=== PATIENT | male | born 1990 | race Two or more races ===

== ENCOUNTER 2019-10-24 20:01 | Inpatient (IN) | payer MEDICAID, OTHER ==
[~2019-10-24] VITALS: Ht 180.3 cm; Wt 78.2 kg
[2019-10-24] MEDS ORDERED: SODIUM CHLORIDE 0.9% 2,000 ML IV ONE (20:30)
[2019-10-24 20:45] LABS: Basophils # (auto) 0.1 10 ^3/uL (0-0.2); Basophils % (auto) 0.4 % (0.0-2.0); Eosinophils # (auto) 0 10 ^3/uL (0-0.8); Eosinophils % (auto) 0.1 % (0.0-7.0); Hematocrit 39.2 % (41.0-53.0); Hemoglobin 13.5 g/dL (13.5-17.5); Lymphocytes # (auto) 1.8 10 ^3/uL (0.4-5.4); Lymphocytes % (auto) 10.5 % (10.0-50.0); Mean Corpuscular Hemoglobin 31.1 pg (28.0-32.0); Mean Corpuscular Hgb Conc. 34.3 g/dL (32.0-36.0); Mean Corpuscular Volume 90.5 fL (80.0-100.0); Monocytes # (auto) 1.4 10 ^3/uL (0-1.3); Monocytes % (auto) 7.9 % (0.0-12.0); Neutrophils # (auto) 14.2 10 ^3/uL (1.6-8.6); Neutrophils % (auto) 81.1 % (37.0-80.0); Platelet Count (auto) 274 10^3/uL (140-450); Red Blood Cells 4.33 10^6/uL (4.5-5.90); Red Cell Distribution Width 13.5 % (11.8-14.3); White Blood Cell 17.5 10^3/uL (4.4-10.8)
[2019-10-24 21:02] LABS: Calcium 8.6 mg/dL (8.5-10.1); Potassium 3.5 mmol/L (3.5-5.1)
[2019-10-24 21:07] LABS: BUN/Creatinine Ratio 12.6; Bilirubin, Total 2.7 mg/dL (0.2-1.0); Total Protein 7.4 g/dL (6.4-8.2)
[2019-10-24] MEDS ORDERED: SODIUM CHLORIDE 0.9% 1,000 ML IV ONE ×2 (21:15→22:45)
[2019-10-24 22:32] LABS: Lactic Acid w/Reflex 2.8 mmol/L (0.4-2.0)
[2019-10-24] MEDS ORDERED: METOPROLOL TARTRATE 1MG/1ML-5ML VIAL IV ONE (22:45)
[2019-10-24] MEDS ORDERED: VANCOMYCIN 1GM/250ML 250 ML IV ONE (22:45)
[2019-10-24] MEDS ORDERED: PIPERACILLIN-TAZOB 3.375GM 100 ML IV ONE (22:45)
[2019-10-24] MEDS ORDERED: ENOXAPARIN SOD 80 MG/0.8ML SYRINGE SC ONE (22:45)
[2019-10-24 22:48] LABS: INR 1.13 (0.9-1.15); Partial Thromboplastin Time 26.8 sec (23.64-32.05)
[2019-10-24 23:22] LABS: Urine Bacteria FEW /hpf (None Seen); Urine Blood Negative /uL (Negative); Urine Hyaline Cast MOD /lpf (0 - 2); Urine Mucus FEW (None Seen); Urine Specific Gravity 1.008 (1.001-1.035); Urine WBC 3 /hpf (0 - 3)
[2019-10-24 23:39] LABS: Alcohol, Urine < 3.0 mg/dL (0-10); Amphetamine Screen, Urine NEGATIVE (NEGATIVE); Barbiturate Scree,Urine NEGATIVE (NEGATIVE); Benzodiazephine Screen, Urine NEGATIVE (NEGATIVE); Cannabinoid Screen, Urine POSITIVE (NEGATIVE); Cocaine Screen, Urine POSITIVE (NEGATIVE); Opiate Scree,Urine NEGATIVE (NEGATIVE); Phencyclidine Screen, Urine NEGATIVE (NEGATIVE)
[2019-10-25] MEDS: SODIUM CHLORIDE 0.9% 1,000 ML IV SCH ×2 (00:27→13:47)
[2019-10-25] MEDS ORDERED: ZOLPIDEM TARTRATE 5 MG TAB PO PRN (00:30)
[2019-10-25] MEDS ORDERED: ACETAMINOPHEN 325 MG TAB PO PRN (00:30)
[2019-10-25] MEDS ORDERED: SODIUM CHLORIDE 0.9% 1,000 ML IV ONE (00:30)
[2019-10-25] MEDS ORDERED: NITROGLYCERIN 0.4 MG SL TAB SL PRN (00:30)
[2019-10-25] MEDS ORDERED: METOPROLOL TARTRATE 1MG/1ML-5ML VIAL IV PRN (00:30)
[2019-10-25] MEDS ORDERED: MORPHINE SULF INJ 2 MG/ML SYRINGE 1ML IV PRN (00:30)
[2019-10-25] MEDS ORDERED: ONDANSETRON HCL 4 MG/2 ML VIAL IV PRN (00:30)
[2019-10-25] MEDS ORDERED: LIDOCAINE W/ EPINEPHRINE 2% INJ 20ML VIAL ID ONE (00:45)
[2019-10-25] MEDS ORDERED: LIDOCAINE W/ EPINEPHRINE 1% 20ML VIAL SC ONE (01:00)
[2019-10-25] MEDS: CARVEDILOL 3.125 MG TAB PO SCH ×2 (10:00→21:46)
[2019-10-25] MEDS: LISINOPRIL 10 MG TAB PO SCH (10:00)
[2019-10-25] MEDS: CLOPIDOGREL BISULFATE 75 MG TAB PO SCH (10:08)
[2019-10-25] MEDS: DOCUSATE SOD 100 MG CAP PO SCH (10:09)
[2019-10-25] MEDS: cefTRIAXone 1GM/50ML D5W 50 ML IV SCH (10:10)
[2019-10-25] MEDS: ASPirin 81 mg TAB PO SCH (10:10)
[2019-10-25] MEDS: ENOXAPARIN SOD 80 MG/0.8ML SYRINGE SC SCH ×2 (10:11→21:47)
--- NOTE | 2019-10-25 17:00 | NUR ---
Patient arrived to unit alert and oriented x4. Patient verbalized his desire to go home. I let him know he would for sure be here overnight. Patient verbalized understanding. Patient oriented to unit, call light, phone, and room. Patient with no s/s of distress at this time.
[2019-10-25] MEDS ORDERED: ATORVASTATIN 20 MG TAB PO SCH ×2 (18:00→22:00)
--- NOTE | 2019-10-25 19:30 | NUR ---
opening note pt resting in semi fowlers position. pt denies pain or discomfort at this. respirations are even and nonlabored on room air. POC discussed. bed in low locked position, call light within reach.
--- NOTE | 2019-10-25 19:45 | NUR ---
critical lab current troponin level of 0.843, TRENDING DOWN from 1.360
[2019-10-25 22:00] VITALS: BP 128/77
--- NOTE | 2019-10-26 01:33 | NUR ---
critical lab Troponin 0.677, TRENDING DOWN from 0.843
[2019-10-26] MEDS: SODIUM CHLORIDE 0.9% 1,000 ML IV SCH (03:07)
[2019-10-26 05:00] VITALS: BP 121/78
[2019-10-26 06:54] LABS: Basophils # (auto) 0 10 ^3/uL (0-0.2); Basophils % (auto) 0.4 % (0.0-2.0); Eosinophils # (auto) 0 10 ^3/uL (0-0.8); Eosinophils % (auto) 0.7 % (0.0-7.0); Hematocrit 28.3 % (41.0-53.0); Hemoglobin 9.6 g/dL (13.5-17.5); Lymphocytes # (auto) 1.5 10 ^3/uL (0.4-5.4); Lymphocytes % (auto) 24.3 % (10.0-50.0); Mean Corpuscular Hemoglobin 31.4 pg (28.0-32.0); Mean Corpuscular Hgb Conc. 34.1 g/dL (32.0-36.0); Mean Corpuscular Volume 92.1 fL (80.0-100.0); Monocytes # (auto) 0.6 10 ^3/uL (0-1.3); Monocytes % (auto) 10.4 % (0.0-12.0); Neutrophils # (auto) 3.9 10 ^3/uL (1.6-8.6); Neutrophils % (auto) 64.2 % (37.0-80.0); Platelet Count (auto) 167 10^3/uL (140-450); Red Blood Cells 3.07 10^6/uL (4.5-5.90); Red Cell Distribution Width 13.3 % (11.8-14.3); White Blood Cell 6.1 10^3/uL (4.4-10.8)
[2019-10-26 07:04] LABS: Calcium 7.9 mg/dL (8.5-10.1); Potassium 3.9 mmol/L (3.5-5.1)
[2019-10-26 07:09] LABS: BUN/Creatinine Ratio 16.5
--- NOTE | 2019-10-26 07:16 | NUR ---
closing note pt resting in semi fowlers with eyes closed. no s/s of pain or discomfort. respirations even and nonlabored on room air. bed in low locked position, call light within reach.
[2019-10-26] MEDS: cefTRIAXone 1GM/50ML D5W 50 ML IV SCH (08:43)
[2019-10-26] MEDS: CLOPIDOGREL BISULFATE 75 MG TAB PO SCH (08:43)
[2019-10-26] MEDS: CARVEDILOL 3.125 MG TAB PO SCH (08:44)
[2019-10-26] MEDS: LISINOPRIL 10 MG TAB PO SCH (08:44)
[2019-10-26] MEDS: ASPirin 81 mg TAB PO SCH (08:44)
[2019-10-26] MEDS: DOCUSATE SOD 100 MG CAP PO SCH (08:44)
[2019-10-26 09:00] VITALS: BP 130/72
[2019-10-26] MEDS: ENOXAPARIN SOD 80 MG/0.8ML SYRINGE SC SCH (10:42)
--- NOTE | 2019-10-26 11:15 | NUR ---
Dr anglin at bedside Dr anglin discussed discharge with patient, and to avoid drug use. Patient verbalized understanding. Will provide more info on drug abuse at time of DC. No social service consult needed.
[2019-10-26 11:22] VITALS: BP 130/72
[2019-10-26 13:00] VITALS: BP 141/80
--- NOTE | 2019-10-26 13:09 | NUR ---
patient given appointment for post-discharge clinic. 11/02/19/ at 11am.
--- NOTE | 2019-10-26 13:51 | NUR ---
IV REMOVED, TELE RETURNED TO MONITOR TECHS.
--- NOTE | 2019-10-26 14:00 | NUR ---
PATIENT TAKEN DOWN TO MAIN ENTRANCE WHERE FAMILY WAS THERE TO TAKE PATIENT HOME.
--- NOTE | 2019-10-26 16:40 | NUR ---
Assessment Patient is a 29-year-old male who is alert and oriented. Prior to admission patient lived with roommates in the [facility] and functioned independently. Advised patient there is a Social Service consult for substance abuse. Offered patient resources for rehabilitation. Patient informed me he was hanging out with his friends and they offered him cocaine and he wanted to try it and the outcome of it was not the best as he ended up in the hospital. Patient informed me he only consumes THC and he will never consume cocaine again stating he was hanging out with the wrong people. Patient refused resource. Patient informed me his family lives in [place]. Per patient he will return to his prior living arrangements post discharge and family will transport him home. Informed patient he has the right to participate in all discharge planning. Patient verbalized understanding and agreed to discharge plan home. Addendum: 10/26/19 at 1650 by TALA JENSEN SS Amended: Links added.
== END 2019-10-26 14:05 | disposition home or self-care (01) | DRG 794 ==
LOC: ER 20:03 → TELE 20:04 → TELE-WESTW 10-25 18:09
PROVIDERS: ADMIT Hospitalist; ATTEND Internal Medicine
PROC: 0JQ10ZZ Repair Face Subcutaneous Tissue and Fascia, Open Approach (ICD-10-PCS; principal; 2019-10-25)
DX: T40.5X1A Poisoning by cocaine, accidental (unintentional), initial encounter (principal); I21.A1 Myocardial infarction type 2; N17.0 Acute kidney failure with tubular necrosis; S22.32XA Fracture of one rib, left side, initial encounter for closed fracture; N39.0 Urinary tract infection, site not specified; I47.1 Supraventricular tachycardia; S01.81XA Laceration without foreign body of other part of head, initial encounter; F19.10 Other psychoactive substance abuse, uncomplicated; F12.90 Cannabis use, unspecified, uncomplicated; F14.90 Cocaine use, unspecified, uncomplicated; W19.XXXA Unspecified fall, initial encounter; Y93.89 Activity, other specified; Y92.89 Other specified places as the place of occurrence of the external cause; Y99.8 Other external cause status; R65.11 Systemic inflammatory response syndrome (SIRS) of non-infectious origin with acute organ dysfunction
CPT/HCPCS: 36415; 70450; 71045; 72125; 80048; 80053; 80061; 80307; 80320; 81001; 83605; 83735; 83880; 84484; 85025; 85610; 85730; 87040; 87086; 93005; 93306; 96361; 96365; 96367; 99291; G0378; J0696; J2543